=== PATIENT | male | born 1960 | race Caucasian/White ===

== ENCOUNTER 2019-01-10 19:15 | Emergency (ER) | payer OTHER ==
--- NOTE | 2019-01-10 20:07 | EDM.PDOC ---
ED HPI GENERAL MEDICAL PROBLEM - General Chief Complaint: Cardiovascular Problem Stated Complaint: HIGH BLOOD PRESSURE/HEADACHE Time Seen by Provider: 01/10/19 19:45 Source of Information: Reports: Patient, Family History Limitations: Reports: No Limitations - History of Present Illness INITIAL COMMENTS - FREE TEXT/NARRATIVE: 58-year-old male comes to the emergency room because of slowly rising blood pressure today, mild headache, generalized malaise and decreased appetite. He had a stroke one year ago that was attributed to hypertension so they follow his blood pressure fairly closely and he wasn't feeling well today so they checked his blood pressure in the been checking it several times today and it is slowly gone up. They're very fearful of hypertension. He has a mild intermittent headache, he had some muscle stiffness in his left forearm and hand today but no other specific symptoms other than a mild head cold. Denies a sore throat, cough, shortness of breath, nausea or vomiting, rashes, joint pains or weakness. He is actually fairly comfortable right now and feels " better than he has all day". His initial blood pressure on arrival was 183/101, it is now 173/100. Onset: Gradual Duration: Hour(s): (Symptoms develop over the last 12 hours) Location: Reports: Head, Generalized Associated Symptoms: Reports: Fever/Chills, Headaches, Loss of Appetite, Malaise , Other (Hypertension). Denies: Confusion, Chest Pain, Cough, Diaphoresis, Weakness - Related Data Allergies Allergy/AdvReac Type Severity Reaction Status Date / Time No Known Allergies Allergy Verified 01/10/19 19:30 Home Meds: Home Meds Allopurinol [Zyloprim] 300 mg PO BEDTIME 01/10/19 [History] Clopidogrel [Plavix] 75 mg PO DAILY 01/10/19 [History] Losartan [Cozaar] 25 mg PO DAILY 01/10/19 [History] Metoprolol Succinate [Toprol XL 50mg] 50 mg PO DAILY 01/10/19 [History] Ranitidine [Zantac] 150 mg .XX BID 01/10/19 [History] atorvaSTATin [Lipitor] 80 mg PO DAILY 01/10/19 [History] Past Medical History Cardiovascular History: Reports: High Cholesterol, Hypertension Gastrointestinal History: Reports: GERD Musculoskeletal History: Reports: Gout Neurological History: Reports: CVA Hematologic History: Reports: Anticoagulation Therapy - Infectious Disease History Infectious Disease History: Reports: Chicken Pox - Past Surgical History Head Surgeries/Procedures: Reports: None Cardiovascular Surgical History: Reports: None Endocrine Surgical History: Reports: None Neurological Surgical History: Reports: None Musculoskeletal Surgical History: Reports: None Dermatological Surgical History: Reports: None Social & Family History - Tobacco Use Smoking Status *Q: Never Smoker Second Hand Smoke Exposure: No - Caffeine Use Caffeine Use: Reports: Soda, Tea - Alcohol Use Days Per Week of Alcohol Use: 7 Number of Drinks Per Day: 2 Total Drinks Per Week: 14 - Recreational Drug Use Recreational Drug Use: No ED ROS GENERAL - Review of Systems Review Of Systems: See Below Constitutional: Reports: Fever, Malaise, Decreased Appetite. Denies: Chills HEENT: Reports: Rhinitis (Mild rhinitis) Respiratory: Reports: No Symptoms Cardiovascular: Reports: No Symptoms GI/Abdominal: Reports: Decreased Appetite : Reports: No Symptoms Musculoskeletal: Reports: Other (Some soreness to the left forearm and hand for most of the day). Denies: Joint Pain Skin: Reports: No Symptoms Neurological: Reports: Headache (Mild intermittent headache) Psychiatric: Reports: No Symptoms ED EXAM, GENERAL - Physical Exam Exam: See Below Exam Limited By: No Limitations General Appearance: Alert, No Apparent Distress Eye Exam: Bilateral Eye: Normal Inspection Throat/Mouth: Normal Inspection Head: Atraumatic, Normocephalic, Other (No scalp tenderness to palpation) Neck: Supple, Non-Tender Respiratory/Chest: No Respiratory Distress, Lungs Clear Cardiovascular: Regular Rate, Rhythm Extremities: Normal Inspection. No: Pedal Edema Neurological: Alert, Oriented, No Motor/Sensory Deficits Psychiatric: Normal Affect, Normal Mood Skin Exam: Warm, Dry Course - Vital Signs Last Recorded V/S: Last Vital Signs Temp 100.7 F H 01/10/19 19:34 Pulse 105 H 01/10/19 21:22 Resp 16 01/10/19 19:34 BP 181/108 H 01/10/19 21:22 Pulse Ox 95 01/10/19 21:22 - Orders/Labs/Meds Orders: Active Orders 24 hr Category Date Time Status HUMAN GRANULOCYTIC [facility] Urgent Lab 01/10/19 21:44 Received LYME (B. BURGDORFERI) PCR Urgent Lab 01/10/19 21:44 Received Labs: Laboratory Tests 01/10/19 01/10/19 01/10/19 Range/Units 19:58 19:59 20:03 WBC 5.0 (4.5-11.0) K/uL RBC 4.65 (4.30-5.90) M/uL Hgb 14.4 (12.0-15.0) g/dL Hct 41.7 (40.0-54.0) % MCV 90 (80-98) fL MCH 31 (27-31) pg MCHC 35 (32-36) % Plt Count 182 (150-400) K/uL Neut % (Auto) 68 H (36-66) % Lymph % (Auto) 15 L (24-44) % [place] % (Auto) 16 H (2-6) % Eos % (Auto) 0 L (2-4) % Baso % (Auto) 0 (0-1) % Sodium 135 L (140-148) mmol/L Potassium 3.8 (3.6-5.2) mmol/L Chloride 99 L (100-108) mmol/L Carbon Dioxide 25 (21-32) mmol/L Anion Gap 14.8 H (5.0-14.0) mmol/L BUN 15 (7-18) mg/dL Creatinine 1.1 (0.8-1.3) mg/dL Est Cr Clr Drug Dosing 77.42 mL/min Estimated GFR (MDRD) > 60 (>60) Glucose 102 (74-106) mg/dL Calcium 9.5 (8.5-10.1) mg/dL Total Bilirubin 0.5 (0.2-1.0) mg/dL AST 69 H (15-37) U/L ALT 85 H (12-78) U/L Alkaline Phosphatase 70 (46-116) U/L Creatine Kinase 125 (39-308) U/L Total Protein 7.9 (6.4-8.2) g/dL Albumin 4.1 (3.4-5.0) g/dL Globulin 3.8 H (2.3-3.5) g/dL Albumin/Globulin Ratio 1.1 L (1.2-2.2) Urine Color [place] Urine Appearance Clear Urine pH 5.0 (4.5-8.0) Ur Specific [place] 1.015 (1.008-1.030) Urine Protein Trace (NEGATIVE) mg/dL Urine Glucose (UA) Normal (NEGATIVE) mg/dL Urine Ketones Negative (NEGATIVE) mg/dL Urine Occult Blood Negative (NEGATIVE) Urine Nitrite Negative (NEGAITVE) Urine Bilirubin Moderate (NEGATIVE) Urine Urobilinogen Normal (NORMAL) mg/dL Ur Leukocyte Esterase Negative (NEGATIVE) Urine RBC 0-5 (0-5) Urine WBC 0-5 (0-5) Ur Epithelial Cells Rare Amorphous Sediment Rare Urine Bacteria Not seen Urine Mucus Few - Re-Assessments/Exams Free Text/Narrative Re-Assessment/Exam: 01/10/19 20:08 A CBC, CMP and UA were obtained. 01/10/19 21:25 CBC and UA were normal, CMP however returned just slightly elevated liver enzymes. Tick panel was added. We discussed treating with doxycycline pending results versus watchful waiting and elected to start the doxycycline 100 mg twice a day. He is given a 10 day supply and we will inform him of lab results when available, or he'll return if he feels he is worsening. Departure - Departure Time of Disposition: 21:41 Disposition: Home, Self-Care 01 Condition: Good Clinical Impression: Fever Qualifiers: Fever type: unspecified Qualified Code(s): R50.9 - Fever, unspecified Hypertension Qualifiers: Hypertension type: essential hypertension Qualified Code(s): I10 - Essential ( primary) hypertension Instructions: Fever, Adult, [id number] Referrals: PCP,None [Primary Care Provider] - Forms: ED Department Discharge Care Plan Goals: Continue your current medications and take doxycycline 100 mg twice daily for up to 10 days. We will inform you of your test results when available, and return anytime if you feel you're worsening despite the antibiotic treatment. - My Orders Last 24 Hours: My Active Orders 01/10/19 21:44 HUMAN GRANULOCYTIC [facility] Urgent LYME (B. BURGDORFERI) PCR Urgent - Assessment/Plan Last 24 Hours: My Active Orders 01/10/19 21:44 HUMAN GRANULOCYTIC [facility]KO-[facility] Urgent LYME (B. BURGDORFERI) PCR Urgent
[2019-01-15 15:09] LABS: HGE IGG TITER Negative (Neg:<1:64); HGE IGM TITER Negative (Neg:<1:20)
== END 2019-01-10 21:41 | disposition home or self-care (01) ==
LOC: JP.ED 19:15
DX: I10 Essential (primary) hypertension (principal); R50.9 Fever, unspecified; E78.00 Pure hypercholesterolemia, unspecified; K21.9 Gastro-esophageal reflux disease without esophagitis; Z79.01 Long term (current) use of anticoagulants; Z86.73 Personal history of transient ischemic attack (TIA), and cerebral infarction without residual deficits; Z79.899 Other long term (current) drug therapy
CPT/HCPCS: 36415; 80053; 81001; 82550; 85025; 86666; 87476; 99284

== ENCOUNTER 2019-09-10 19:24 | Emergency (ER) | payer OTHER ==
--- NOTE | 2019-09-10 20:35 | EDM.PDOC ---
ED HPI GENERAL MEDICAL PROBLEM - General Chief Complaint: Cardiovascular Problem Stated Complaint: HIGH BLOOD PRESSURE Time Seen by Provider: 09/10/19 20:10 Source of Information: Reports: Patient History Limitations: Reports: No Limitations - History of Present Illness INITIAL COMMENTS - FREE TEXT/NARRATIVE: This is a 59-year-old with history of hypertension and prior stroke presents to concerns of high blood pressure. He had a headache earlier today, checked his BP, was as high as 209 systolic. Generally SBPs 160s. Headache has since gone away, presents now concerned about the BP readings Has no CP, dyspnea, or other new/associate symptoms - Related Data Allergies Allergy/AdvReac Type Severity Reaction Status Date / Time No Known Allergies Allergy Verified 09/10/19 19:29 Home Meds: Home Meds Clopidogrel [Plavix] 75 mg PO DAILY 01/10/19 [History] Losartan [Cozaar] 25 mg PO DAILY 01/10/19 [History] Metoprolol Succinate [Toprol XL 50mg] 50 mg PO DAILY 01/10/19 [History] Ranitidine [Zantac] 150 mg .XX BID 01/10/19 [History] allopurinoL [Zyloprim] 300 mg PO BEDTIME 01/10/19 [History] atorvaSTATin [Lipitor] 80 mg PO DAILY 01/10/19 [History] Past Medical History Cardiovascular History: Reports: High Cholesterol, Hypertension Gastrointestinal History: Reports: GERD Musculoskeletal History: Reports: Gout Neurological History: Reports: CVA Hematologic History: Reports: Anticoagulation Therapy - Infectious Disease History Infectious Disease History: Reports: Chicken Pox - Past Surgical History Head Surgeries/Procedures: Reports: None Cardiovascular Surgical History: Reports: None Endocrine Surgical History: Reports: None Neurological Surgical History: Reports: None Musculoskeletal Surgical History: Reports: None Dermatological Surgical History: Reports: None Social & Family History - Tobacco Use Smoking Status *Q: Never Smoker - Caffeine Use Caffeine Use: Reports: Tea - Alcohol Use Days Per Week of Alcohol Use: 5 Number of Drinks Per Day: 2 Total Drinks Per Week: 10 - Recreational Drug Use Recreational Drug Use: No ED ROS GENERAL - Review of Systems Review Of Systems: See Below Constitutional: Reports: No Symptoms HEENT: Reports: No Symptoms Respiratory: Reports: No Symptoms Cardiovascular: Reports: No Symptoms Endocrine: Reports: No Symptoms GI/Abdominal: Reports: No Symptoms : Reports: No Symptoms Musculoskeletal: Reports: No Symptoms Skin: Reports: No Symptoms Neurological: Reports: No Symptoms Psychiatric: Reports: No Symptoms Hematologic/Lymphatic: Reports: No Symptoms Immunologic: Reports: No Symptoms ED EXAM, GENERAL - Physical Exam Exam: See Below Exam Limited By: No Limitations General Appearance: Alert, No Apparent Distress Head: Atraumatic, Normocephalic Neck: Normal Inspection Respiratory/Chest: Lungs Clear Cardiovascular: Regular Rate, Rhythm GI/Abdominal: Soft, Non-Tender (Male) Exam: No Hernia Rectal (Males) Exam: Normal Exam Back Exam: Normal Inspection Extremities: Normal Inspection Neurological: Alert, Oriented Psychiatric: Normal Affect, Normal Mood Skin Exam: Warm, Dry Course - Vital Signs Last Recorded V/S: Last Vital Signs Temp 36.3 C 09/10/19 19:38 Pulse 80 09/10/19 20:15 Resp 16 09/10/19 19:38 BP 173/103 H 09/10/19 20:15 Pulse Ox 94 L 09/10/19 20:15 - Re-Assessments/Exams Free Text/Narrative Re-Assessment/Exam: 59 yo with hx of hypertension presents with concerns of asymptomatic hypertension SBP range 160-180 Currently on cozar, metoprolol Will defer any changes to these agents, has PCP follow up later this week for recheck Safe for discharge 09/10/19 20:41 Departure - Departure Time of Disposition: 22:33 Disposition: Home, Self-Care 01 Clinical Impression: Asymptomatic hypertension Instructions: Hypertension, [id number] Referrals: PCP,None [Primary Care Provider] - Forms: ED Department Discharge Additional Instructions: As discussed, please follow up with your primary doctor as planned on Tuesday for blood pressure recheck. Sepsis Event Note - Evaluation Sepsis Screening Result: No Definite Risk - Focused Exam Vital Signs: Vital Signs Temp Pulse Resp BP Pulse Ox 09/10/19 20:15 80 173/103 H 94 L 09/10/19 19:38 36.3 C 84 16 188/103 H 96 09/10/19 19:35 36.3 C 84 16 188/103 H 96 Date Exam was Performed: 09/10/19 Time Exam was Performed: 20:36
== END 2019-09-10 20:41 | disposition home or self-care (01) ==
LOC: JP.ED 19:24
DX: I10 Essential (primary) hypertension (principal); E78.00 Pure hypercholesterolemia, unspecified; K21.9 Gastro-esophageal reflux disease without esophagitis; M10.9 Gout, unspecified; Z86.73 Personal history of transient ischemic attack (TIA), and cerebral infarction without residual deficits; Z79.02 Long term (current) use of antithrombotics/antiplatelets; Z79.899 Other long term (current) drug therapy
CPT/HCPCS: 99283